=== PATIENT | male | born 1965 | race American Indian/Alaskan Native ===

== ENCOUNTER 2021-12-14 13:30 | Emergency (ER) | payer SELFPAY ==
[2021-12-14] MEDS ORDERED: ONDANSETRON 4 MG/2 ML INJ IV ONE ×2 (15:46→20:35)
[2021-12-14] MEDS ORDERED: PANTOPRAZOLE 40 MG INJ IV ONE ×2 (15:46→20:35)
[2021-12-14] MEDS ORDERED: SODIUM CHLORIDE 0.9% 1000 ML 1,000 ML IV ONE ×2 (15:46→20:30)
[2021-12-14] MEDS ORDERED: MORPHINE 4 MG/1 ML INJ IV ONE ×2 (15:46→20:35)
[2021-12-14] MEDS ORDERED: hydrALAZINE 20 MG/1 ML INJ IV ONE ×2 (15:57→20:35)
--- NOTE | 2021-12-14 15:57 | Emergency Department Report ---
ED Abdominal Pain HPI - General Chief Complaint: Nausea/Vomiting/Diarrhea Stated Complaint: VOMITITNG Time Seen by Provider: 12/14/21 15:28 Source: patient, EMS Mode of arrival: Stretcher Limitations: No Limitations - History of Present Illness Initial Comments: Patient is a 56-year-old male brought in by EMS from home with complaint of sharp/burning epigastric pain, nausea and vomiting beginning early this morning at approximately 1 AM. The pain radiates up into his chest. He reports history of gastritis. Denies any recent fever, chills. Severity scale (0 -10): 0 - Related Data Previous Rx's Medication Instructions Recorded Last Taken Type Ondansetron [Zofran Odt] 4 mg PO Q8HR #20 tab.rapdis 12/14/21 Unknown Rx Allergies Allergy/AdvReac Type Severity Reaction Status Date / Time No Known Allergies Allergy Unverified 12/14/21 17:17 ED Review of Systems ROS: Stated complaint: VOMITITNG Other details as noted in HPI Constitutional: denies: chills, fever Eyes: denies: eye pain, eye discharge, vision change Respiratory: denies: cough, shortness of breath, wheezing Cardiovascular: denies: chest pain, palpitations Gastrointestinal: abdominal pain, nausea, vomiting Musculoskeletal: denies: back pain, joint swelling, arthralgia Skin: denies: rash, lesions Neurological: denies: headache, weakness, paresthesias Psychiatric: denies: anxiety, depression ED Past Medical Hx - Medications Home Medications: Home Medications Medication Instructions Recorded Confirmed Last Taken Type Ondansetron [Zofran Odt] 4 mg PO Q8HR #20 tab.rapdis 12/14/21 Unknown Rx ED Physical Exam - General Limitations: No Limitations General appearance: alert, in distress - Head Head exam: Present: atraumatic, normocephalic - Respiratory Respiratory exam: Present: normal lung sounds bilaterally. Absent: respiratory distress - Cardiovascular Cardiovascular Exam: Present: regular rate, normal rhythm, normal heart sounds - GI/Abdominal GI/Abdominal exam: Present: soft, tenderness (Tenderness in epigastric region). Absent: distended, organomegaly, mass - Rectal Rectal exam: Present: deferred - Neurological Exam Neurological exam: Present: alert, oriented X3 - Psychiatric Psychiatric exam: Present: normal affect, normal mood - Skin Skin exam: Present: warm, dry, intact, normal color ED Course Vital Signs 12/14/21 12/14/21 13:39 16:58 Temperature 98.3 F 98.8 F Pulse Rate 69 90 Respiratory 16 20 Rate Blood Pressure 223/110 189/102 [Left] O2 Sat by Pulse 95 99 Oximetry ED Medical Decision Making - Lab Data Result diagrams: 12/14/21 16:30 12/14/21 16:30 - Medical Decision Making Patient brought in by EMS with complaint of epigastric pain. Patient was given IV Protonix, normal saline bolus and hydralazine. CBC and CMP are grossly unremarkable. Specifically lipase is normal. I suspect patient's symptoms are likely related to gastritis or possibly peptic ulcer disease. On reassessment his symptoms are improved. Will discharge home with prescription for antiemetics and instruct him to avoid use of NSAIDs or ingestion of spicy/acidic foods. Critical care attestation.: If time is entered above; I have spent that time in minutes in the direct care of this critically ill patient, excluding procedure time. ED Disposition Clinical Impression: Epigastric pain, Nausea and vomiting Disposition: 01 HOME / SELF CARE / HOMELESS Is pt being admited?: No Condition: Stable Instructions: Nausea and Vomiting, Adult, Abdominal Pain, Adult, [id number]
[2021-12-14 17:08] LABS: Basophils % (Auto) 0.8 % (0.0-1.8); Eosinophils % (Auto) 0.3 % (0.0-4.3); Hematocrit 43.6 % (35.5-45.6); Hemoglobin 14.9 gm/dl (11.8-15.2); Lymphocytes # (Auto) 0.6 K/mm3 (1.2-5.4); Lymphocytes % (Auto) 9.9 % (13.4-35.0); Mean Corpuscular HGB Conc 34 % (32-34); Mean Corpuscular Volume 93 fl (84-94); Monocytes # (Auto) 0.3 K/mm3 (0.0-0.8); Platelet Count 281 K/mm3 (140-440); Red Cell Distribution Width 13.7 % (13.2-15.2)
[2021-12-14 17:30] LABS: Alanine Aminotransferase 10 units/L (7-56); Albumin 4.8 g/dL (3.9-5); BUN/Creatinine Ratio 16; Blood Urea Nitrogen 13 mg/dL (9-20); Calcium 9.7 mg/dL (8.4-10.2); Hemolysis Index 35
[2021-12-14 17:32] LABS: Bilirubin,Direct < 0.2 mg/dL (0-0.2)
[2021-12-14] MEDS ORDERED: METOCLOPRAMIDE 10 MG/2 ML INJ IV ONE (22:04)
[2021-12-15 00:25] VITALS: BP 145/88
--- NOTE | 2021-12-15 11:27 | Electrocardiograph Report ---
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
== END 2021-12-15 01:08 | disposition home or self-care (01) ==
LOC: ED 13:30
DX: R11.2 Nausea with vomiting, unspecified (principal); R10.13 Epigastric pain
CPT/HCPCS: 36415; 80048; 80076; 83690; 85025; 93005; 96361; 96374; 96375; 99284; C9113; J0360; J2270; J2405; J2765; J7030